=== PATIENT | female | born 1975 | race African-American/Black ===

== ENCOUNTER 2017-08-08 09:00 | Emergency (ER) | payer SELFPAY ==
[~2017-08-08] VITALS: Ht 152.4 cm; Wt 54.5 kg
[~2017-08-08 09:00] MED LIST: DOXY100T PO; METR-1 PO
[2017-08-08 09:01] VITALS: BP 133/80; PULSE 69; RESP 16; TEMP 98.8; O2SAT 99
[2017-08-08 10:25] LABS: AUTOMATED NEUTROPHIL # 1.7 TH/MM3 (1.8-7.7); BASOPHIL # 0.1 TH/MM3 (0-0.2); BASOPHIL % 1.1 % (0.0-2.0); EOSINOPHIL # 0.1 TH/MM3 (0-0.4); EOSINOPHIL % 2.7 % (0.0-4.0); HEMATOCRIT 39.7 % (35.0-46.0); HEMOGLOBIN 13.2 GM/DL (11.6-15.3); LYMPH % 51.2 % (9.0-44.0); LYMPHOCYTE # 2.4 TH/MM3 (1.0-4.8); MEAN CELL VOLUME 86.3 FL (80.0-100.0); MEAN CORPUSCULAR HEMOGLOBIN 28.6 PG (27.0-34.0); MEAN CORPUSCULAR HGB CONC 33.2 % (32.0-36.0); MEAN PLATELET VOLUME 8.3 FL (7.0-11.0); MONO % 8.4 % (0.0-8.0); MONOCYTE # 0.4 TH/MM3 (0-0.9); NEUT % 36.6 % (16.0-70.0); PLATELET COUNT 335 TH/MM3 (150-450); RED BLOOD COUNT 4.61 MIL/MM3 (4.00-5.30); RED CELL DISTRIBUTION WIDTH 13.3 % (11.6-17.2); WHITE BLOOD COUNT 4.8 TH/MM3 (4.0-11.0)
[2017-08-08 10:31] LABS: BACTERIA, URINE RARE /hpf; BILIRUBIN, URINE NEG (NEG); BLOOD, URINE NEG (NEG); GLUCOSE,URINE NEG (NEG); KETONE, URINE NEG (NEG); NITRITE,URINE NEG (NEG); PH, URINE 6.5 (5.0-8.5); SQUAMOUS EPITHELIAL CELL URINE 6 /hpf (0-5); URINE COLOR LIGHT-YELLOW (YELLW/STRAW); URINE LEUKOCYTE ESTERASE SMALL (NEG)
[2017-08-08 10:41] LABS: ALBUMIN 3.8 GM/DL (3.4-5.0); ALT (GPT) 18 U/L (10-53); AST (GOT) 16 U/L (15-37); BICARBONATE 27.3 MEQ/L (21.0-32.0); BLOOD UREA NITROGEN 13 MG/DL (7-18); CALCIUM 8.6 MG/DL (8.5-10.1); CHLORIDE 104 MEQ/L (98-107); GLOMERULAR FILTRATION RATE 96 ML/MIN (>89); GLUCOSE,RANDOM 81 MG/DL (74-106); SODIUM (NA) 136 MEQ/L (136-145)
[2017-08-08 10:42] LABS: ALKALINE PHOSPHATASE 78 U/L (45-117); TOTAL BILIRUBIN ADULT 0.2 MG/DL (0.2-1.0); TOTAL PROTEIN 8.6 GM/DL (6.4-8.2)
--- NOTE | 2017-08-08 11:14 | RADRPT ---
EXAM DATE/TIME: 08/08/2017 11:05 [place] COMPARISON: No previous studies available for comparison. INDICATIONS : Chephalgia, abnormal menstral cycle for one year. RADIATION DOSE: 34.60 CTDIvol (mGy) MEDICAL HISTORY : None SURGICAL HISTORY : Lumpectomy ENCOUNTER: Initial ACUITY: 1 day PAIN SCALE: 2/10 LOCATION: cranial TECHNIQUE: Multiple contiguous axial images were obtained of the head. Using automated exposure control and adj ustment of the mA and/or kV according to patient size, radiation dose was kept as low as reasonably a chievable to obtain optimal diagnostic quality images. DICOM format image data is available electro nically for review and comparison. FINDINGS: CEREBRUM: The ventricles are normal for age. No evidence of midline shift, mass lesion, hemorrhage or acute in farction. No extra-axial fluid collections are seen. POSTERIOR FOSSA: The cerebellum and brainstem are intact. The 4th ventricle is midline. The cerebellopontine angle i s unremarkable. EXTRACRANIAL: The visualized portion of the orbits is intact. SKULL: The calvaria is intact. No evidence of skull fracture. CONCLUSION: Normal examination. Kristopher Arriaga MD on August 08, 2017 at 11:11 Board Certified Radiologist. This report was verified electronically.
[2017-08-08] MEDS ORDERED: BACT800T5 PO (12:21)
--- NOTE | 2017-08-08 12:21 | PD ---
HPI Chief Complaint: [place] Problem/Complaint Time Seen by Provider: 09:35 Travel History International Travel<30 days: No Contact w/Intl Traveler<30days: No Traveled to known affect area: No History of Present Illness HPI Patient is a 41-year-old female who comes in complaining of urinary frequency and dysuria. She says is been going on for about a week. She also has multiple other complaints and been going on for the past year since having a miscarriage. She says that she has been having abnormal periods, sometimes having her menstrual cycle twice in 1 month. She says she is producing milk from her breasts. She denies any fever or chills. She says she has an occasional headache, but is not currently having a headache. She denies nausea or vomiting. She has not followed up with gynecology. She says she really comes in today because of the urinary symptoms which are new. She has not taken anything for her symptoms. Severity is mild to moderate. PFSH Past Medical History Immunizations Current: Yes ?: Not Para: 3 Past Surgical History Other Surgery: Yes (lumpectomy) Social History Alcohol Use: Yes (occas) Tobacco Use: No Substance Use: No Allergies-Medications (Allergen,Severity, Reaction): Coded Allergies: No Known Allergies (Unverified Adverse Reaction, Unknown, 08/08/17) Reported Meds & Prescriptions Reported Meds & Active Scripts Active Flagyl (Metronidazole) 500 Mg Tab 4 Tab PO TODAY TAKE 4 TABS (2000 MG) PO TODAY Doxycycline Hyclate 100 mg (Doxycycline Hyclate) 100 Mg Tab 1 Tab PO Q12H 7 Days Review of Systems Except as stated in HPI: all other systems reviewed are Neg General / Constitutional: No: Fever, Chills Eyes: No: Blurred Vision HENT: Positive: Headaches Cardiovascular: No: Chest Pain or Discomfort Respiratory: No: Shortness of Breath Gastrointestinal: No: Nausea, Vomiting Genitourinary: Positive: Urgency, Frequency, Dysuria, Metorrhagia Skin: No Rash, No Change in Pigmentation Neurologic: No: Weakness, Dizziness Physical Exam Narrative GENERAL: Awake and alert, in no acute distress. SKIN: Focused skin assessment warm/dry. No wounds or signs of infection. HEAD: Atraumatic. Normocephalic. EYES: Pupils equal and round. No scleral icterus. EOMI ENT: Mucous membranes pink and moist. NECK: Trachea midline. No JVD. CARDIOVASCULAR: Regular rate and rhythm. No murmur appreciated. RESPIRATORY: No accessory muscle use. Clear to auscultation. Breath sounds equal bilaterally. GASTROINTESTINAL: Abdomen soft, non-tender, nondistended. : Exam performed in the presence of a female nurse. There is thin white discharge, no cervical lesions. No CMT. MUSCULOSKELETAL: No obvious deformities. No clubbing. No cyanosis. No edema. NEUROLOGICAL: Awake and alert. No obvious cranial nerve deficits. Motor grossly within normal limits. Normal speech. PSYCHIATRIC: Appropriate mood and affect; insight and judgment normal. Data Data Last Documented VS Vital Signs Date Time Temp Pulse Resp B/P (MAP) Pulse Ox O2 Delivery O2 Flow Rate FiO2 08/08/17 09:01 98.8 69 16 133/80 (97) 99 Room Air Orders Orders Iv Access Insert/Monitor (08/08/17 09:45) Complete Blood Count With Diff (08/08/17 09:45) Comprehensive Metabolic Panel (08/08/17 09:45) Prolactin (08/08/17 09:45) Ct Brain W/O Iv Contrast(Rout) (08/08/17 ) Ed Urine Pregnancytest Poc (08/08/17 09:45) Urinalysis - C+S If Indicated (08/08/17 09:45) Gc And Chlamydia Pcr (08/08/17 09:45) Wet Prep Profile (08/08/17 09:45) Urine Culture (08/08/17 10:00) Labs Laboratory Tests Test 08/08/17 10:00 White Blood Count 4.8 TH/MM3 Red Blood Count 4.61 MIL/MM3 Hemoglobin 13.2 GM/DL Hematocrit 39.7 % Mean Corpuscular Volume 86.3 FL Mean Corpuscular Hemoglobin 28.6 PG Mean Corpuscular Hemoglobin Concent 33.2 % Red Cell Distribution Width 13.3 % Platelet Count 335 TH/MM3 Mean Platelet Volume 8.3 FL Neutrophils (%) (Auto) 36.6 % Lymphocytes (%) (Auto) 51.2 % Monocytes (%) (Auto) 8.4 % Eosinophils (%) (Auto) 2.7 % Basophils (%) (Auto) 1.1 % Neutrophils # (Auto) 1.7 TH/MM3 Lymphocytes # (Auto) 2.4 TH/MM3 Monocytes # (Auto) 0.4 TH/MM3 Eosinophils # (Auto) 0.1 TH/MM3 Basophils # (Auto) 0.1 TH/MM3 CBC Comment DIFF FINAL Differential Comment Urine Color LIGHT-YELLOW Urine Turbidity CLEAR Urine pH 6.5 Urine Specific [place] 1.017 Urine Protein NEG mg/dL Urine Glucose (UA) NEG mg/dL Urine Ketones NEG mg/dL Urine Occult Blood NEG Urine Nitrite NEG Urine Bilirubin NEG Urine Urobilinogen LESS THAN 2.0 MG/DL Urine Leukocyte Esterase SMALL Urine RBC 1 /hpf Urine WBC 11 /hpf Urine Squamous Epithelial Cells 6 /hpf Urine Bacteria RARE /hpf Microscopic Urinalysis Comment CULTURE INDICATED Clue Cells (Wet Prep) NONE SEEN Vaginal Trichomonas (Wet Prep) NONE SEEN Vaginal Yeast (Wet Prep) NONE SEEN Blood Urea Nitrogen 13 MG/DL Creatinine 0.80 MG/DL Random Glucose 81 MG/DL Total Protein 8.6 GM/DL Albumin 3.8 GM/DL Calcium Level 8.6 MG/DL Alkaline Phosphatase 78 U/L Aspartate Amino Transf (AST/SGOT) 16 U/L Alanine Aminotransferase (ALT/SGPT) 18 U/L Total Bilirubin 0.2 MG/DL Sodium Level 136 MEQ/L Potassium Level 4.1 MEQ/L Chloride Level 104 MEQ/L Carbon Dioxide Level 27.3 MEQ/L Anion Gap 5 MEQ/L Estimat Glomerular Filtration Rate 96 ML/MIN [facility] Medical Decision Making Medical Screen Exam Complete: Yes Emergency Medical Condition: Yes Medical Record Reviewed: Yes Differential Diagnosis UTI versus BV versus GC and Chlamydia versus Narrative Course Patient is a 41-year-old female who comes in with multiple complaints, but specifically is here for dysuria and urgency. She is expressing milk from her breasts on exam, there does not appear to be any infection or obvious lumps. IV established, labs sent. Labs show no acute abnormalities. Urinalysis is positive for white cells as well as bacteria. CT head performed shows no acute abnormalities. Patient be discharged with a prescription for Bactrim. She is advised follow-up with gynecology for further testing. She understands this and is comfortable with this plan. Advised return anytime for any worsening symptoms. Diagnosis Primary Impression: UTI (urinary tract infection) Qualified Codes: N30.00 - Acute cystitis without hematuria Patient Instructions: General Instructions, Urinary Tract Infection in Women ( ED) Additional Instructions: Take all of your antibiotic. Follow up with gynecology for further hormonal testing. Return at any time for any worsening symptoms. Scripts Sulfamethoxazole-Trimethoprim (Bactrim DS) 800-160 Mg Tab 1 TAB PO BID for Infection for 5 Days, #10 TAB 0 Refills Prov: Aimee Babcock MD 08/08/17 Disposition: 01 DISCHARGE HOME Condition: Stable Aimee Babcock MD Aug 08, 2017 12:21
== END 2017-08-08 12:55 | disposition home or self-care (01) ==
LOC: NEPD 09:00
DX: N30.00 Acute cystitis without hematuria (principal)
CPT/HCPCS: 70450; 80053; 81001; 84146; 84703; 85025; 87077; 87086; 87186; 87210; 87491; 87591; 99284